=== PATIENT | male | born 1950 | race Hispanic/Latino ===

== ENCOUNTER 2024-09-01 15:43 | Observation (INO) | payer OTHER ==
[~2024-09-01] VITALS: Ht 167.6 cm; Wt 79.1 kg
[2024-09-01] VITALS (27 sets, daily range): BP systolic 103–139; BP diastolic 57–94
[2024-09-01] MEDS ORDERED: DILTIAZEM HCL 125 MG in SODIUM CHLORIDE 0.9% 100 ML IV ONE (16:05)
[2024-09-01] MEDS ORDERED: dilTIAZem HCL 50 MG/10 ML SDV IV ONE (16:05)
--- NOTE | 2024-09-01 16:15 | NUR ---
PT TAKEN TO ROOM 10 IN STABLE CONDITION.
[2024-09-01 16:19] LABS: HEMATOCRIT 43.5 % (39.0-50.0); HEMOGLOBIN 13.9 g/dl (14.0-18.0); IMMATURE GRANULOCYTES 0.9 % (0.0-5.0); MEAN CELL VOLUME 95.6 fL CALC (80.0-100.0); MEAN CORPUSCULAR HGB 30.5 pG CALC (26.0-32.0); MONO% 7.5 % (2-13); NEUT# 6.92 thou/uL (1.82-7.42); NEUT% 74.6 % (42-76); RED BLOOD COUNT 4.55 mill/uL (4.70-6.10); RED CELL DISTRI WIDTH 13.8 % (11.5-15.5)
[2024-09-01] MEDS ORDERED: SODIUM CHLORIDE 0.9% 250 ML IV STA (16:21)
[2024-09-01 16:29] LABS: ALBUMIN 4.4 g/dL (3.2-5.0); ALKALINE PHOSPHATASE 84 u/l (38-126); ANION GAP 15 (6-22 (CALC)); BILIRUBIN, TOTAL 0.6 mg/dL (0.2-1.3); BUN 22 mg/dL (8-23); BUN/CREATININE RATIO 17 (12-20 (CALC)); CARBON DIOXIDE 27 mmol/l (22-30); CHLORIDE 101 mmol/l (95-108); CREATININE 1.3 mg/dL (0.7-1.3); ESTIMATED GFR 57 ML/MIN (>=90 (CALC)); POTASSIUM 4.5 mmol/l (3.5-5.1); SGOT/AST 32 u/l (19-48); SODIUM 139 mmol/l (137-146)
--- NOTE | 2024-09-01 17:00 | NUR ---
PT RESTING COMFORTABLY-CARDIZEM GTT @10MG/HR.
[2024-09-01] MEDS ORDERED: TOPROL XL25 M1 PO (17:39)
[2024-09-01] MEDS ORDERED: ELIQUIS5 MG PO (17:39)
[2024-09-01] MEDS ORDERED: METOPROLOL SUCCINATE 25 MG/TAB-TOPROL XL PO SCH (17:40)
[2024-09-01] MEDS ORDERED: MAGNESIUM HYDROXIDE 30 ML UDC PO PRN (17:40)
[2024-09-01] MEDS ORDERED: ACETAMINOPHEN 325 MG/TAB PO PRN (17:40)
--- NOTE | 2024-09-01 19:26 | NUR ---
REPORT GIVEN TO Tisha GALVAN RN
[2024-09-01] MEDS ORDERED: APIXABAN BASE 5 MG TAB PO SCH (21:00)
--- NOTE | 2024-09-01 21:11 | NUR ---
PATIENT TRASNPORTED TO ICU BY Suzanne CHURCH RN
--- NOTE | 2024-09-01 21:22 | NUR ---
74 yr old citizen of [place] male admitted to icu3 per stretcher from er. tranferred self to bed. bed weight obtained. daughter @ bedside & translates for this check writer salesperson. shelter monitor shows a fib. cardizem gtt cont. history obtained per pt & er record. orented to room. fall precautions initiated. c/o tooth pain. pt requested tylenol. tylenol 650mg po given.
[2024-09-02] VITALS (13 sets, daily range): BP systolic 97–141; BP diastolic 53–94
--- NOTE | 2024-09-02 00:01 | NUR ---
eyes closed. no distress. cariac monitor shows a fib.
--- NOTE | 2024-09-02 02:00 | NUR ---
resting quietly. resps even & unlabored. daughter in recliner @ bedside
--- NOTE | 2024-09-02 04:00 | NUR ---
ardiac monitor shows a fib.
--- NOTE | 2024-09-02 06:00 | NUR ---
awake. denies distress. daughter @ bedside
--- NOTE | 2024-09-02 07:46 | NUR ---
SPOKE WITH PT THRU DAUGHTER WITH PASSENGER TIRE INSPECTOR NURSE, PT IS CARDIZEM DRIP AT THIS TIME BUT HEART RATE IS IN THE 50-60'S, EXPLAINED TO PT THAT WE WOULD BE WEANING HIM DOWN AND EVENTUALLY OFF THE DRIP THIS AM. PT DENIES ANY SYMPTOMS, STATES FEELS GOOD, HAD A SCHEDULED STRESS TEST TWO DAYS AGO BUT WAS UNABLE TO FINISH IT BECAUSE OF FAST HR, IS TO FOLLOW UP WITH DR. AVINA. ADVISED OF POC.
--- NOTE | 2024-09-02 12:11 | NUR ---
PT REMAINS RESTING QUIETLY NO COMPLAINTS. REMAIN IN AFIB BUT DENIES ANY CHEST PAIN, BLOOD PRESSURE [id number] MAP OF 88, WILL CONTINUE TO MONITER
--- NOTE | 2024-09-02 12:51 | NUR ---
DAUGHTER CALLED FOR DISCHRGE THIMBLE PRESS OPERATOR DISCHARGE IN STRUCTION GIVEN /PT /FAMILY VOICES UNDERSTANDING IV D/C WITH NO PROBLEMS, SITE APPEARS HEALTHY.
--- NOTE | 2024-09-03 14:50 | NUR ---
Discharge follow up call completed 09/03/24. Daughter states patient is doing well since discharge. Patient saw shipsmith after discharge. He is scheduled for additional testing and will see PCP after that. No needs or concerns verbalized at this time.
== END 2024-09-02 13:45 | disposition home or self-care (01) | DRG 310 ==
LOC: ED 15:43 → ED-I 17:10 → ED 17:30 → ICU 17:31
PROVIDERS: Family Medicine; ADMIT Internal Medicine; ATTEND Internal Medicine
DX: I48.91 Unspecified atrial fibrillation (principal); I48.92 Unspecified atrial flutter; I10 Essential (primary) hypertension; Z79.01 Long term (current) use of anticoagulants; Z85.118 Personal history of other malignant neoplasm of bronchus and lung; Z92.21 Personal history of antineoplastic chemotherapy